=== PATIENT | female | born 1955 | race Asian ===

== ENCOUNTER → 2020-08-28 | Outpatient (CLI) | payer SELFPAY | LOC: CARD 09:00 | PROVIDERS: ATTEND Internal Medicine Cardiovascular Disease | DX: R00.2 Palpitations (principal); R06.02 Shortness of breath | CPT/HCPCS: 93306 ==

== ENCOUNTER → 2020-09-15 | Outpatient (CLI) | payer SELFPAY ==
[~2020-09-15] VITALS: Ht 170 cm; Wt 52.0 kg
[~2020-09-15] MED LIST: CATHETER FLUSH 10 ML SYR IV PRN
[2020-09-15 09:15] VITALS: BP 126/76
--- NOTE | 2020-09-15 18:25 | Cardiology Stress Test Report ---
Stress Test Report Date of Procedure/Referring: Date of Procedure: Sep 15, 2020 PCP Laron De Leon MD Admitting Physician No,Local Physician Indications: Palpitation Baseline Heart Rate: 63 Baseline Blood Pressure: Blood Pressure Systolic: 126 Blood Pressure Diastolic: 76 Vital Signs Date Time Temp Pulse Resp B/P (MAP) Pulse Ox O2 Delivery O2 Flow Rate FiO2 09/15/20 09:15 63 18 126/76 (93) 97 Room Air Baseline Vital Signs Vital Signs Date Time Temp Pulse Resp B/P (MAP) Pulse Ox O2 Delivery O2 Flow Rate FiO2 09/15/20 09:15 63 18 126/76 (93) 97 Room Air Baseline EKG: Baseline EKG: NSR Summary: After explaining the procedure and details to the patient, she signed the consent and was brought to the stress nuclear laboratory. Patient exercised on standard Darrin protocol, EKG, heart rate and blood pressure were monitored continuously, resting and stress doses of radio tracer were injected, imaging was acquired and reviewed in the short axis, horizontal long axis and vertical long axis views Patient was able to exercise for a total of 6:30 minutes on Darrin protocol, METs 7.9 Maximum heart rate 149 Maximum blood pressure 162/78 Stress EKG, Minimal nondiagnostic changes Recovery EKG, Return to baseline TID: 1.07 SSS: 5 SDS: 5 EF: 75 Conclusion: 1. Good exercise tolerance for a total of 6 minutes and 30 seconds on standard Darrin protocol, 7.9 METS, achieving 94% of maximum expected heart rate 2. Appropriate heart rate and blood pressure response to exercise return to baseline during recovery 3. Minimal nondiagnostic EKG changes with exercise return to baseline during recovery 4. No arrhythmia was noted during stress test 5. Diaphragmatic attenuation affecting the quality of the images with mild decrease uptake involving the mid to apical inferior septum with mild reversibility, there is no significant ischemia or infarction on SPECT images 6. Normal left ventricular size, EF 75% LARON DE LEON MD Sep 15, 2020 18:25
== END ==
LOC: CARD 07:35
PROVIDERS: ATTEND Internal Medicine Cardiovascular Disease
DX: R00.2 Palpitations (principal); R06.02 Shortness of breath
CPT/HCPCS: 78452; 93017; A9502

== ENCOUNTER → 2021-03-11 | Outpatient (CLI) | payer OTHER ==
[2021-03-11 10:14] LABS: CHLORIDE 106 MMOL/L (98-107); POTASSIUM 4.3 MMOL/L (3.6-5.0); SODIUM 144 MMOL/L (135-145)
[2021-03-11 10:15] LABS: ALANINE AMINOTRANSFERASE 27 U/L (0-55); ALKALINE PHOSPHATASE 113 U/L (40-136); BILIRUBIN,TOTAL 0.4 MG/DL (0.1-1.0); BUN/CREATININE RATIO 23; CALCIUM 9.6 MG/DL (8.5-10.1); CARBON DIOXIDE 30 MMOL/L (21-32); CREATININE SERUM 0.61 MG/DL (0.60-1.30); GFR ESTIMATED 99; GLUCOSE 99 MG/DL (70-105); TOTAL PROTEIN 7.7 GM/DL (6.4-8.2)
[2021-03-11 10:16] LABS: ALBUMIN 4.8 GM/DL (3.2-4.5)
== END ==
LOC: LAB FS 09:17
PROVIDERS: ATTEND Physician Assistant Surgical
DX: K76.89 Other specified diseases of liver (principal)
CPT/HCPCS: 36415; 80053

== ENCOUNTER → 2021-03-12 | Outpatient (CLI) | payer OTHER ==
[~2021-03-12] MED LIST changes: +BARIUM SUSPENSION 2.1% (VANILLA SILQ) 450 ML PO ONE; +HOLD METFORMIN - RECEIVED CONTRAST 20 ML VIAL IV SCH; +IOHEXOL 350 MG/ML 100 ML (OMNIPAQUE 350) VIAL IV ONE; +NS 100 ML (IVPB) BAG IV ONE
--- NOTE | 2021-03-12 10:39 | Diagnostic Imaging Report ---
EXAMINATION: CT abdomen and pelvis with intravenous contrast. TECHNIQUE: Multiple contiguous axial images were obtained through the abdomen and pelvis after the uneventful administration of intravenous contrast. All CT scans use one or more of the following dose optimizing techniques: automated exposure control, MA and/or KvP adjustment based on patient size and exam type or iterative reconstruction. HISTORY: HEPATIC CYST COMPARISON: None available. FINDINGS: Lung bases: Atelectasis or scarring within the medial right middle lobe. Solid organs: There are multiple hepatic cysts measuring up to 8.9 x 8.8 cm within the left hepatic lobe which demonstrates a thin internal septation. There is an additional 2.1 cm cyst within the left hepatic lobe. The gallbladder is normal. There is dilatation of the common bile duct measuring up to 1.0 cm. No intrahepatic biliary ductal dilatation. Pancreas is normal. Spleen is normal. Adrenal glands are normal. The kidneys are normal without hydronephrosis. Bowel: The stomach and small bowel are normal without obstruction. The colon and appendix are normal. Peritoneum: There is no intraperitoneal free fluid or free air. No suspicious lymphadenopathy. Vasculature: Normal without aneurysm. Musculoskeletal: No suspicious osseous lesion or compression fracture. Pelvis: The uterus and adnexa are normal. The urinary bladder is normal. IMPRESSION: 1. No acute abnormality in the abdomen or pelvis. 2. Simple and minimally complex left hepatic cysts measuring up to 8.9 cm. 3. Mild dilatation of the common bile duct measuring up to 1.0 cm. This could be further evaluated with ERCP or MRCP. Dictated by: Dictated on workstation # [id number]
== END ==
LOC: RAD FS 08:05
PROVIDERS: ATTEND Physician Assistant Surgical
DX: K76.89 Other specified diseases of liver (principal)
CPT/HCPCS: 74177

== ENCOUNTER → 2021-12-08 | Outpatient (CLI) | payer SELFPAY ==
[~2021-12-08] MED LIST changes: -BARIUM SUSPENSION 2.1% (VANILLA SILQ) 450 ML PO ONE
--- NOTE | 2021-12-08 14:38 | Diagnostic Imaging Report ---
EXAMINATION: CT abdomen with and without intravenous contrast. TECHNIQUE: Precontrast acquisitions were acquired through the abdomen. Multiple contiguous axial images were obtained through the abdomen after the administration of intravenous contrast. All CT scans use one or more of the following dose optimizing techniques: automated exposure control, MA and/or KvP adjustment based on patient size and exam type or iterative reconstruction. HISTORY: Status post COMPARISON: 03/12/2021 FINDINGS: Limited views of the lower thorax show mild right middle lobe atelectasis. There is a stable large cyst in the left hemiliver measuring 8.1 x 9.0 cm, previously 8.9 x 8.0 cm. No suspicious enhancing components are seen. There is no biliary ductal dilation. Gallbladder is not seen. Pancreas is normal. Spleen is normal. Adrenal glands are normal. The kidneys are normal. There is no hydronephrosis. Visualized bowel is normal in caliber without obstruction or inflammation. No free fluid or air. No abdominal lymphadenopathy. Aorta is normal in caliber without aneurysm. There are no suspicious osseus lesions. IMPRESSION: 1. Stable large cyst in liver. No new liver lesions are seen and no suspicious liver lesions. Dictated by: Dictated on workstation # [id number]
== END ==
LOC: RAD 11:03
PROVIDERS: ATTEND Transplant Surgery
DX: K76.89 Other specified diseases of liver (principal)
CPT/HCPCS: 74170